=== PATIENT | female | born 1950 | race Hispanic/Latino ===

== ENCOUNTER → 2018-10-25 | Outpatient (CLI) | payer MEDICARE | END | disposition home or self-care (01) | LOC: OIH 11:14 | PROVIDERS: ATTEND Family Medicine | DX: M25.521 Pain in right elbow (principal) | CPT/HCPCS: 73080 ==

== ENCOUNTER → 2020-01-21 | Outpatient (CLI) | payer MEDICARE | END | disposition home or self-care (01) | LOC: SHCH 14:31 | PROVIDERS: ATTEND Internal Medicine Cardiovascular Disease | DX: I87.2 Venous insufficiency (chronic) (peripheral) (principal) | CPT/HCPCS: 93970 ==

== ENCOUNTER → 2020-04-28 | Outpatient (CLI) | payer MEDICARE ==
[~2020-04-28] MED LIST: IOHEXOL-350 50ML VIAL IV ONE
== END | disposition home or self-care (01) ==
LOC: RAH 12:53
PROVIDERS: ATTEND Family Medicine
DX: R51.9 Headache, unspecified (principal)
CPT/HCPCS: 70470; Q9967

== ENCOUNTER → 2025-04-22 | Outpatient (CLI) | payer MEDICARE ==
--- NOTE | 2025-04-23 02:45 | HMCIMG ---
STUDY: X-RAY OF THE THORACIC SPINE, 2 VIEWS HISTORY: Thoracic radiculopathy. TECHNIQUE: Anteroposterior and lateral views of the thoracic spine are submitted for interpretation. COMPARISON: None provided. FINDINGS: Bones and joints: Diffuse osteopenia is present. Multilevel degenerative changes are noted with anterior and lateral osteophytosis and mild reduction in intervertebral disc heights throughout the thoracic spine. Vertebral body heights are preserved without acute compression fracture or destructive osseous lesion. Alignment is maintained. Soft tissues: Visualized paraspinal soft tissues are unremarkable. No prevertebral soft tissue swelling or radiopaque foreign body is identified. IMPRESSION: * Multilevel thoracic spondylosis with osteophytosis and mild disc height loss. * Diffuse osteopenia. * No acute thoracic vertebral fracture or malalignment identified. /[facility]
--- NOTE | 2025-04-23 02:47 | HMCIMG ---
STUDY: X-RAY OF THE CERVICAL SPINE, 4 VIEWS HISTORY: Cervical radiculopathy. TECHNIQUE: Four views of the cervical spine are submitted for interpretation. COMPARISON: None provided. FINDINGS: Bones and joints: Mild osteopenia is present. Multilevel degenerative changes are noted with mild reduction in intervertebral disc heights and facet joint hypertrophy. Vertebral body heights are preserved without acute fracture or destructive osseous lesion. Alignment is maintained. Soft tissues: Visualized prevertebral and paraspinal soft tissues are unremarkable. IMPRESSION: * Multilevel cervical spondylosis with mild disc height loss and facet joint hypertrophy. * Mild osteopenia. * In the setting of cervical radiculopathy, MRI of the cervical spine may be helpful for further assessment of the spinal canal and neural foramina. /[facility]
== END | disposition home or self-care (01) ==
LOC: RAH 11:32
PROVIDERS: ATTEND Internal Medicine
DX: M47.23 Other spondylosis with radiculopathy, cervicothoracic region (principal); M85.80 Other specified disorders of bone density and structure, unspecified site; M51.14 Intervertebral disc disorders with radiculopathy, thoracic region; M50.10 Cervical disc disorder with radiculopathy, unspecified cervical region
CPT/HCPCS: 72040; 72070